=== PATIENT | female | born 1975 | race Caucasian/White ===

== ENCOUNTER 2023-08-09 14:53 | Outpatient (CLI) | payer OTHER, SELFPAY ==
--- NOTE | 2023-08-09 15:00 | ECG_ITS ---
Test Date: 2023-08-09 15:11:30 Measurements Intervals [place] Rate: 108 P: 46 TN: 142 QRS: 58 QRSD: 114 T: -2 QT: 335 QTc: 450 Interpretive Statements SINUS TACHYCARDIA POSSIBLE LEFT ATRIAL ENLARGEMENT INTRAVENTRICULAR CONDUCTION DELAY DELAYED PRECORDIAL R/S TRANSITION CONSIDER INFERIOR INFARCT, AGE INDETERMINATE BORDERLINE ST-T WAVE ABNORMALITY- ANTEROLATERAL LEADS BASELINE ARTIFACT- I, II, III, AVR, AVL, AVF ABNORMAL ECG No previous ECG available for comparison Electronically Signed On 08-09-2023 15:22:56 CDT by Chi Hylton D.O.
[2023-08-09 15:27] LABS: Anion Gap 10 mmol/L (4-12); Blood Urea Nitrogen 19 mg/dL (7-17); Calcium 9.8 mg/dL (8.4-10.2); Carbon Dioxide 26 mmol/L (22-30); Chloride 99 mmol/L (98-107); Estimated Glomerular Filt Rate > 60; Glucose 335 mg/dL (65-110); Potassium 4.5 mmol/L (3.4-5.0); Sodium 135 mmol/L (137-145)
== END 2023-08-09 14:54 | disposition home or self-care (01) ==
LOC: ANHSURGERY 14:56
PROVIDERS: Anesthesiology; PCP Physician Assistant; Visit Provider Orthopaedic Surgery
DX: Z01.818 Encounter for other preprocedural examination (principal); E11.9 Type 2 diabetes mellitus without complications; I25.10 Atherosclerotic heart disease of native coronary artery without angina pectoris; I45.4 Nonspecific intraventricular block; R94.31 Abnormal electrocardiogram [ECG] [EKG]
CPT/HCPCS: 36415; 80048; 93005

== ENCOUNTER 2023-08-16 00:25 | Day surgery (SDC) | payer OTHER, SELFPAY ==
[2023-08-05 10:48] VITALS: BMI 29.0
--- NOTE | 2023-08-05 11:08 | PC.NURSE ---
Addendum entered by Leroy Meraz RN 08/06/23 14:35: Do not take Lantus insulin morning of surgery. Original Note: Report to the Outpatient Waiting Room, entrance under the green pavilion located off [facility], at time _0830_ on date _[id number]_. Planned Procedure Time: _1030__. Time changes happen often and if your time is changed the preop area will call you the afternoon before. - You and your visitor will be asked to self-screen and do not enter if you have any COVID symptoms. - A mask is optional within the hospital at this time. Patients may have clear liquids (water, carbonated beverages, clear teas, apple juice) until 3 hours prior to surgery with a maximum of 20 ounces. - No food from midnight until time of surgery Take the following medications with a SIP of water the morning of surgery: __Lantus insulin 8 units, Alprazolam, Levothyroxine, Metoprolol, Quetiapine, Ropinorole__ DO NOT STOP ANY OF YOUR OTHER PRESCRIPTION MEDICATIONS PRIOR TO SURGERY ?EXCEPT THE FOLLOWING Medications to discontinue per physician ____Icosapent Date to take last knoe___[id number] No humalog insulin or diabetic meds morning of surgery. Lantus only. Please no make-up, nail greek, hairspray, perfume, deodorant, or body powder the day of surgery. No jewelry (including any body piercings) or valuables the day of surgery, leave them at home. Please take a shower or bath the night before, or the morning of, surgery with an antibacterial soap. Wear comfortable, loose fitting clothing. - Jewelry must be removed prior to entering the operating room. Rings and piercings that are not removed may be cut off. - The hospital will not accept responsibility for valuables. - Please leave all valuables, including medications, at home the day of surgery. If you are going home after surgery, a licensed pick up driver must drive you home. - NO public transportation without another adult if you receive anesthesia. - We recommend that an adult stay with you for 24 hours following discharge. - We also recommend that you do not drive, make important decision, drink alcoholic beverages, or take any drugs that were not prescribed by your health care provider for at least 24 hours after your discharge time. Follow any additional instructions given to you from your surgeon. If you or anyone in your household have experienced Covid symptoms in the past week, please notify your surgeon or the nurse liaison at the phone number below for possible testing. Telephone instructions given to __Paula___and asked if any additional questions and then verbalized understanding. Patient advised to call surgeon office or pre surgery nurse liaison [phone] if any additional questions.
--- NOTE | 2023-08-10 12:35 | PM.IMHP ---
H&P: HPI History of Present Illness Date/Time: 08/10/23 12:35 Chief Complaint: Patient has a painful mass in the right greater trochanteric region of her hip. Review of Systems Musculoskeletal: Musculoskeletal: Reports arthralgias, Reports joint swelling and Reports stiffness PMFSH Past Medical History Medical History (Updated 07/29/23 @ 14:08 by Darren Wooten MD) Anxiety Diabetes Hypertension Mild acid reflux Neuropathy RLS (restless legs syndrome) Surgical History Surgical History (Updated 07/29/23 @ 14:00 by Katherine Shearer [facility]) History of carpal tunnel surgery of right wrist History of heart bypass surgery 3x History of hysterectomy Family History Family History (Updated 05/26/23 @ 13:16 by Rhianna Ramirez [facility]) Mother Diabetes mellitus Hypertension Depression Heart disease Anxiety Social History Social History (Updated 07/29/23 @ 14:01 by Katherine Shearer [facility]) Smoking packs per day: 2 Smoking cigarettes per day: 40.0 Years smoked: 32 Smoking pack-years: 64.00 Smoking status: Current every day smoker Tobacco type: cigarettes Additional smoking assessment comments: Trying to quit, down to 5 cigarettes a day. Alcohol intake: current Substance use: never Substance use type: marijuana Other substance usage details: CBD gummies weekly to mellow out before bed. Do You Feel Safe in your Home?: Yes Lack of Transportation: No Lack of Food: Sometimes True Current Housing: I Have Housing Concerned About Future Housing: No Difficulty Paying Gas/Electric Bills: YES Difficulty Paying for Meds: No Currently Unemployed: No Education: High School Diploma/GED Difficulty w/ Childcare or Family Care: No Living arrangements: with family Additional occupation/education comments: disabled Gender identity (if verbalized by the patient): Female Spiritual care concerns: No Meds Home Medications and Allergies Home Medications Medication Instructions Recorded Confirmed Type alprazolam 2 mg tablet 2 mg PO BID 05/26/23 08/05/23 History amitriptyline 100 mg tablet 100 mg PO QHS 05/26/23 08/05/23 History empagliflozin 10 mg tablet 10 mg PO QAM 05/26/23 08/05/23 History (Jardiance) furosemide 20 mg tablet 20 mg PO QAM PRN Edema 05/26/23 08/05/23 History hydrocodone 7.5 mg-acetaminophen 15 ml PO Q6H PRN Pain 05/26/23 08/05/23 History 325 mg/15 mL oral solution hydroxyzine HCl 25 mg tablet 25 mg PO BID PRN Itching 05/26/23 08/05/23 History icosapent ethyl 1 gram capsule 2 g PO BID 05/26/23 08/05/23 History levothyroxine 25 mcg tablet 25 mcg PO DAILY 05/26/23 08/05/23 History (Unithroid) metformin 500 mg tablet 500 mg PO BID 05/26/23 08/05/23 History methocarbamol 500 mg tablet 500 mg PO TID 05/26/23 08/05/23 History metoclopramide HCl 10 mg tablet 10 mg PO Q6H PRN Acid Reflux 05/26/23 08/05/23 History (Reglan) metoprolol succinate 25 mg 12.5 mg PO DAILY 05/26/23 08/05/23 History tablet,extended release 24 hr omeprazole 40 mg capsule,delayed 40 mg PO DAILY 05/26/23 08/05/23 History release quetiapine 150 mg tablet 150 mg PO BID 05/26/23 08/05/23 History rimegepant 75 mg disintegrating 75 mg PO ONCE PRN migrane 05/26/23 08/05/23 History tablet (Nurtec ODT) ropinirole 0.25 mg tablet 0.25 mg PO BID 05/26/23 08/05/23 History spironolactone 25 mg tablet 25 mg PO DAILY 05/26/23 08/05/23 History ursodiol 300 mg capsule 300 mg PO BID 05/26/23 08/05/23 History insulin glargine 100 unit/mL (3 8 unit subcut DAILY 08/05/23 08/05/23 History mL) subcutaneous pen (Lantus Solostar U-100 Insulin) insulin lispro 100 unit/mL 6 sliding scale dose subcut BID 08/05/23 08/05/23 History subcutaneous pen nitroglycerin 0.4 mg sublingual 0.4 mg sublingual TID PRN Chest 08/05/23 08/05/23 History tablet Pain Allergies Allergy/AdvReac Type Severity Reaction Status Date / Time ibuprofen Allergy Rash Verified 08/05/23 10:44 ketorolac [From T
[2023-08-16] VITALS (8 sets, daily range): BP systolic 86–116; BP diastolic 54–88; PULSE 89–107; RESP 11–20; TEMP 36.3; O2SAT 91–99
[2023-08-16] MEDS: ACETAMINOPHEN 500 MG TABLET 1000 MG PO (09:28)
[2023-08-16] MEDS: LACTATED RINGERS 1,000 ML 30 ML IV CONT (09:29)
--- NOTE | 2023-08-16 09:36 | WPDANESEPPF ---
Anes - Initial Pre Proc Eval Procedure: Operation Date: 08/16/23 10:30 Proposed Procedures p Excision of Soft Tissue Mass Right Greater Trochanteric - Darren Wooten MD Date/Time: 08/16/23 09:36 Surgeon: Darren Wooten MD Pre Op Diagnosis: Mass Right Greater Trochanteric Patient Data Age: 48 Gender: F Height: 1.6 m Weight: 74.5 kg Allergies Allergy/AdvReac Type Severity Reaction Status Date / Time ibuprofen Allergy Rash Verified 08/16/23 09:20 ketorolac [From Toradol] Allergy Nausea and Verified 08/16/23 09:20 Vomiting Penicillins Allergy Swelling Verified 08/16/23 09:20 of Lip/Tongue/Throat tramadol Allergy Rash Verified 08/16/23 09:20 Home Medications Medication Instructions Recorded Confirmed Type alprazolam 2 mg tablet 2 mg PO BID 05/26/23 08/16/23 History amitriptyline 100 mg tablet 100 mg PO QHS 05/26/23 08/05/23 History empagliflozin 10 mg tablet 10 mg PO QAM 05/26/23 08/05/23 History (Jardiance) furosemide 20 mg tablet 20 mg PO QAM PRN Edema 05/26/23 08/05/23 History hydroxyzine HCl 25 mg tablet 25 mg PO BID PRN Itching 05/26/23 08/05/23 History icosapent ethyl 1 gram capsule 2 g PO BID 05/26/23 08/05/23 History levothyroxine 25 mcg tablet 25 mcg PO DAILY 05/26/23 08/05/23 History (Unithroid) metformin 500 mg tablet 500 mg PO BID 05/26/23 08/05/23 History methocarbamol 500 mg tablet 500 mg PO TID 05/26/23 08/05/23 History metoclopramide HCl 10 mg tablet 10 mg PO Q6H PRN Acid Reflux 05/26/23 08/05/23 History (Reglan) metoprolol succinate 25 mg 12.5 mg PO DAILY 05/26/23 08/16/23 History tablet,extended release 24 hr omeprazole 40 mg capsule,delayed 40 mg PO DAILY 05/26/23 08/05/23 History release quetiapine 150 mg tablet 150 mg PO BID 05/26/23 08/16/23 History rimegepant 75 mg disintegrating 75 mg PO ONCE PRN migrane 05/26/23 08/05/23 History tablet (Nurtec ODT) ropinirole 0.25 mg tablet 0.25 mg PO BID 05/26/23 08/05/23 History spironolactone 25 mg tablet 25 mg PO DAILY 05/26/23 08/05/23 History ursodiol 300 mg capsule 300 mg PO BID 05/26/23 08/05/23 History insulin glargine 100 unit/mL (3 8 unit subcut DAILY 08/05/23 08/05/23 History mL) subcutaneous pen (Lantus Solostar U-100 Insulin) insulin lispro 100 unit/mL 6 sliding scale dose subcut BID 08/05/23 08/05/23 History subcutaneous pen nitroglycerin 0.4 mg sublingual 0.4 mg sublingual TID PRN Chest 08/05/23 08/05/23 History tablet Pain Patient hx anesthesia problems: none Family hx anesthesia problems: none Results Review: All pre-operative results and documents have been reviewed as part of the pre-operative evaluation. [facility] Past Medical History Medical History (Updated 07/29/23 @ 14:08 by Darren Wooten MD) Anxiety Diabetes Hypertension Mild acid reflux Neuropathy RLS (restless legs syndrome) Surgical History Surgical History (Updated 07/29/23 @ 14:00 by Katherine Shearer CMA) History of carpal tunnel surgery of right wrist History of heart bypass surgery 3x History of hysterectomy Family History Family History (Updated 05/26/23 @ 13:16 by Rhianna Ramirez CMA) Mother Diabetes mellitus Hypertension Depression Heart disease Anxiety Social History Social History (Updated 07/29/23 @ 14:01 by Katherine Shearer CMA) Smoking packs per day: 2 Smoking cigarettes per day: 40.0 Years smoked: 32 Smoking pack-years: 64.00 Smoking status: Current every day smoker Tobacco type: cigarettes Additional smoking assessment comments: Trying to quit, down to 5 cigarettes a day. Alcohol intake: current Substance use: never Substance use type: marijuana Other substance usage details: CBD gummies weekly to mellow out before bed. Do You Feel Safe in your Home?: Yes Lack of Transportation: No Lack of Food: Sometimes True Current Housing: I Have Housing Concerned About Future Housing: No Difficulty Paying Gas/Electric Bills: YES
--- NOTE | 2023-08-16 09:47 | WPDHPUPDATE1 ---
History and Physical Update Update Date/Time: 08/16/23 09:47 History and Physical has been reviewed, including an updated exam of the patient. There are NO changes in the patient's condition. Risks, benefits, and alternatives have been discussed and questions answered. Patient agrees to proceed with procedure.
[2023-08-16 09:50] LABS: Glucose Point of Care 408 mg/dl (65-105)
[2023-08-16] MEDS: INSULIN HUMAN REGULAR (*BKC) 100 UNITS/ML 8 UNITS IV PUSH (10:01)
[2023-08-16] MEDS: ceFAZolin 2 GM/D5W 50 ML 2 GM/50 ML BAG IVPB (10:25)
--- NOTE | 2023-08-16 10:54 | P.OP_ITS ---
Procedure Note - Detailed Date of Procedure 08/16/23 Pre-op Diagnosis Mass Right Greater Trochanteric Alin area Post-op Diagnosis Same Procedure Performed Excision Mass Surgeon Darren Wooten MD Banquet Waiter/Waitress Jamila Wilburn Anesthesia General Indications Painful Mass Findings 2 cm mass Description of Procedure Patient brought to operating room #7. General anesthetic was administered. She was sterilely prepped and draped with the right hip up. A longitudinal incision made over the hip. Dissection carried down to the fascia. The masses identified appear to be a lipoma. This was excised on block removed the entire mass in 1 piece. This was sent to pathology. At this point hemostasis obtained wound thoroughly irrigated closed with 2-0 Vicryl and 3-0 Prolene. Sterile dressing was applied. The patient left the operating room satisfactory condition. Estimated Blood Loss 5 Drains No Packing No Pathology Yes Complications No immediate complications Condition Stable Disposition PACU [facility] Billing Surgery - Charge Forward: Surgery Billing (21011 Excision Hip Mass)
[2023-08-16 11:21] LABS: Glucose Point of Care 279 mg/dl (65-105)
--- NOTE | 2023-08-16 11:34 | SUR.PHASEI ---
1115 - [facility]. no orders received at this time.
[2023-08-16] MEDS: oxyCODONE HCL (*CRX) 5 MG TAB IR PO (12:34)
== END 2023-08-16 13:04 | disposition home or self-care (01) ==
PROVIDERS: PCP Physician Assistant; Visit Provider Orthopaedic Surgery
PROC: (CPT 27047; principal; 2023-08-16 10:30)
DX: D17.23 Benign lipomatous neoplasm of skin and subcutaneous tissue of right leg (principal); I10 Essential (primary) hypertension; E11.40 Type 2 diabetes mellitus with diabetic neuropathy, unspecified; K21.9 Gastro-esophageal reflux disease without esophagitis; G25.81 Restless legs syndrome; F41.9 Anxiety disorder, unspecified; F17.210 Nicotine dependence, cigarettes, uncomplicated; F12.90 Cannabis use, unspecified, uncomplicated; Z79.84 Long term (current) use of oral hypoglycemic drugs; Z79.4 Long term (current) use of insulin; Z95.1 Presence of aortocoronary bypass graft
CPT/HCPCS: 27047; 82948; 88304; A9270; J0690; J1815; J2250; J2371; J2405; J2704; J3010; J7120